=== PATIENT | female | born 1975 | race Caucasian/White ===

== ENCOUNTER 2016-10-24 20:46 | Emergency (ER) | payer OTHER ==
[~2016-10-24 20:46] MED LIST: HCTZ/LISINOPRIL1 TA1 PO; LISINOPRIL2.5 MG PO; MOTRIN800 MG PO; PROZ20 PO; ZOC10 PO
[2016-10-24 23:32] LABS: BASOPHIL % 0.8 % (0-2); PLATELET COUNT 285 x10^3mcL (130-400); RED CELL DISTRIBUTION WIDTH 13.8 % (11.5-14.5)
[2016-10-24 23:36] LABS: CALCIUM 8.9 mg/dL (8.5-10.1); CARBON DIOXIDE 28.9 mmol/L (21-32); CHLORIDE SERUM 101 mmol/L (98-107); CREATININE SERUM 0.8 mg/dL (0.6-1.0); GFR1 > 60 mL/min; GLUCOSE SERUM 98 mg/dL (74-106); POTASSIUM SERUM 3.3 mmol/L (3.5-5.1); SODIUM SERUM 140 mmol/L (136-145)
[2016-10-24 23:38] VITALS: BP 121/80
== END 2016-10-25 00:16 | disposition home or self-care (01) ==
LOC: ED 20:46
PROVIDERS: Emergency Medicine
DX: R07.89 Other chest pain (principal); E87.6 Hypokalemia; I10 Essential (primary) hypertension; J45.909 Unspecified asthma, uncomplicated; F41.9 Anxiety disorder, unspecified
CPT/HCPCS: 36415; Q0092

== ENCOUNTER 2017-06-06 13:18 | Emergency (ER) | payer OTHER ==
[~2017-06-06] VITALS: Ht 154.9 cm; Wt 79.8 kg
[2017-06-06 13:45] VITALS: Ht 154.9 cm; Wt 79.8 kg
[2017-06-06 15:43] LABS: UA SPECIFIC GRAVITY 1.015 (1.005-1.035); microscopic required? YES; urine erythrocyte 2+ (NEGATIVE)
[2017-06-06 15:59] VITALS: BP 138/102
== END 2017-06-06 15:59 | disposition home or self-care (01) ==
LOC: ED 13:18
PROVIDERS: Emergency Medicine
DX: R30.0 Dysuria (principal); M54.5 Low back pain; R10.30 Lower abdominal pain, unspecified; I10 Essential (primary) hypertension; J45.909 Unspecified asthma, uncomplicated

== ENCOUNTER 2017-06-07 08:22 | Emergency (ER) | payer OTHER ==
[~2017-06-07] VITALS: Ht 160 cm; Wt 65.8 kg
[2017-06-07 08:30] VITALS: Ht 160 cm; Wt 65.8 kg
[2017-06-07 09:06] LABS: microscopic required? NO
[2017-06-07 09:20] LABS: BASOPHIL % 0.4 % (0-2); PLATELET COUNT 258 x10^3mcL (130-400); RED CELL DISTRIBUTION WIDTH 14.5 % (11.5-14.5)
[2017-06-07 09:24] LABS: UA SPECIFIC GRAVITY <=1.005 (1.005-1.035); urine erythrocyte NEGATIVE (NEGATIVE)
[2017-06-07 09:28] LABS: CALCIUM 9.4 mg/dL (8.5-10.1); CARBON DIOXIDE 28.7 mmol/L (21-32); CHLORIDE SERUM 100 mmol/L (98-107); CREATININE SERUM 0.7 mg/dL (0.6-1.0); GFR1 > 60 mL/min; GLUCOSE SERUM 109 mg/dL (74-106); POTASSIUM SERUM 3.7 mmol/L (3.5-5.1); SODIUM SERUM 136 mmol/L (136-145)
[2017-06-07 09:32] LABS: ALBUMIN 3.5 g/dL (3.4-5.0); ALKALINE PHOSPHATASE 90 U/L (46-116); ALT/SGPT 48 U/L (14-59); AMYLASE 61 U/L (25-115); AST/SGOT 23 U/L (15-37); BILIRUBIN TOTAL 0.2 mg/dL (0.20-1.00); LIPASE 121 IU/L (73-393); TOTAL PROTEIN, SERUM 7.4 g/dL (6.4-8.2)
[2017-06-07 13:12] VITALS: BP 140/99
== END 2017-06-07 13:12 | disposition home or self-care (01) ==
LOC: ED 08:22
PROVIDERS: Emergency Medicine
DX: M54.9 Dorsalgia, unspecified (principal); N20.0 Calculus of kidney; I10 Essential (primary) hypertension; F41.9 Anxiety disorder, unspecified
CPT/HCPCS: 83880; J1885; J7030

== ENCOUNTER 2017-06-15 05:46 | Emergency (ER) | payer MEDICAID ==
[~2017-06-15] VITALS: Ht 154.9 cm; Wt 66.2 kg
[2017-06-15 05:59] VITALS: BP 144/93; Ht 154.9 cm; Wt 66.2 kg
== END 2017-06-15 08:33 | disposition home or self-care (01) ==
LOC: ED 05:46
DX: R10.12 Left upper quadrant pain (principal); R10.13 Epigastric pain; R11.0 Nausea; J45.909 Unspecified asthma, uncomplicated; I10 Essential (primary) hypertension
CPT/HCPCS: J1885; Q0092

== ENCOUNTER 2017-10-09 09:57 | Emergency (ER) | payer OTHER ==
[~2017-10-09] VITALS: Ht 152.4 cm; Wt 66.7 kg
[2017-10-09 10:01] VITALS: Ht 152.4 cm; Wt 66.7 kg
[2017-10-09 10:42] LABS: BASOPHIL % 0.6 % (0-2); PLATELET COUNT 266 x10^3mcL (130-400); RED CELL DISTRIBUTION WIDTH 13.8 % (11.5-14.5)
[2017-10-09 10:47] LABS: CALCIUM 8.1 mg/dL (8.5-10.1); CARBON DIOXIDE 26.1 mmol/L (21-32); CHLORIDE SERUM 100 mmol/L (98-107); CREATININE SERUM 0.8 mg/dL (0.6-1.0); GFR1 > 60 mL/min; GLUCOSE SERUM 153 mg/dL (74-106); POTASSIUM SERUM 3.8 mmol/L (3.5-5.1); SODIUM SERUM 137 mmol/L (136-145)
[2017-10-09 10:52] LABS: ALBUMIN 3.5 g/dL (3.4-5.0); ALKALINE PHOSPHATASE 88 U/L (46-116); ALT/SGPT 42 U/L (14-59); AMYLASE 72 U/L (25-115); AST/SGOT 25 U/L (15-37); BILIRUBIN TOTAL 0.3 mg/dL (0.20-1.00); LIPASE 117 IU/L (73-393); TOTAL PROTEIN, SERUM 7.3 g/dL (6.4-8.2)
[2017-10-09 12:03] VITALS: BP 125/75
== END 2017-10-09 12:03 | disposition home or self-care (01) ==
LOC: ED 09:57
PROVIDERS: Emergency Medicine
DX: H81.10 Benign paroxysmal vertigo, unspecified ear (principal); R53.1 Weakness; R11.2 Nausea with vomiting, unspecified; J45.909 Unspecified asthma, uncomplicated; I10 Essential (primary) hypertension
CPT/HCPCS: J2550; J8597

== ENCOUNTER 2018-01-18 08:34 | Emergency (ER) | payer OTHER ==
[~2018-01-18] VITALS: Ht 154.9 cm; Wt 66.7 kg
[2018-01-18 09:45] LABS: BASOPHIL % 0.5 % (0-2); PLATELET COUNT 255 x10^3mcL (130-400); RED CELL DISTRIBUTION WIDTH 14.4 % (11.5-14.5)
[2018-01-18 09:54] LABS: CALCIUM 8.1 mg/dL (8.5-10.1); CARBON DIOXIDE 26.4 mmol/L (21-32); CHLORIDE SERUM 107 mmol/L (98-107); CREATININE SERUM 0.8 mg/dL (0.6-1.0); GFR1 > 60 mL/min; GLUCOSE SERUM 109 mg/dL (74-106); POTASSIUM SERUM 4.2 mmol/L (3.5-5.1); SODIUM SERUM 140 mmol/L (136-145)
[2018-01-18 09:58] LABS: ALKALINE PHOSPHATASE 89 U/L (46-116); ALT/SGPT 63 U/L (14-59); AST/SGOT 39 U/L (15-37); BILIRUBIN TOTAL 0.33 mg/dL (0.20-1.00); TOTAL PROTEIN, SERUM 7.3 g/dL (6.4-8.2)
[2018-01-18 10:07] LABS: ALBUMIN 3.3 g/dL (3.4-5.0)
[2018-01-18 10:50] VITALS: BP 107/65
== END 2018-01-18 10:49 | disposition home or self-care (01) ==
LOC: ED 08:34
PROVIDERS: Emergency Medicine
DX: R07.89 Other chest pain (principal); I10 Essential (primary) hypertension; M62.830 Muscle spasm of back; F41.9 Anxiety disorder, unspecified; J45.909 Unspecified asthma, uncomplicated; Z98.890 Other specified postprocedural states
CPT/HCPCS: 36415; J1885; Q0092

== ENCOUNTER 2018-02-05 11:39 | Emergency (ER) | payer OTHER ==
[~2018-02-05] VITALS: Ht 160 cm; Wt 65.3 kg
[2018-02-05 11:41] VITALS: Ht 160 cm; Wt 65.3 kg
[2018-02-05 12:33] LABS: BASOPHIL % 0.7 % (0-2); CALCIUM 8.4 mg/dL (8.5-10.1); CARBON DIOXIDE 29.4 mmol/L (21-32); CHLORIDE SERUM 105 mmol/L (98-107); CREATININE SERUM 0.9 mg/dL (0.6-1.0); GFR1 > 60 mL/min; GLUCOSE SERUM 101 mg/dL (74-106); PLATELET COUNT 277 x10^3mcL (130-400); POTASSIUM SERUM 4.4 mmol/L (3.5-5.1); RED CELL DISTRIBUTION WIDTH 14.1 % (11.5-14.5); SODIUM SERUM 140 mmol/L (136-145)
[2018-02-05 12:37] LABS: ALBUMIN 3.8 g/dL (3.4-5.0); ALKALINE PHOSPHATASE 89 U/L (46-116); ALT/SGPT 71 U/L (14-59); AST/SGOT 47 U/L (15-37); BILIRUBIN TOTAL 0.39 mg/dL (0.20-1.00); TOTAL PROTEIN, SERUM 7.6 g/dL (6.4-8.2)
[2018-02-05 14:06] VITALS: BP 140/89
== END 2018-02-05 14:57 | disposition home or self-care (01) ==
LOC: ED 11:39
PROVIDERS: Emergency Medicine
DX: J40 Bronchitis, not specified as acute or chronic (principal); R09.1 Pleurisy; I10 Essential (primary) hypertension; F41.9 Anxiety disorder, unspecified; Z98.890 Other specified postprocedural states
CPT/HCPCS: 36415; 83880; 85378; J1885; J7512; Q0092

== ENCOUNTER 2018-03-19 17:41 | Emergency (ER) | payer OTHER ==
[~2018-03-19] VITALS: Ht 152.4 cm; Wt 67.1 kg
[2018-03-19 18:08] VITALS: Ht 152.4 cm; Wt 67.1 kg
[2018-03-19 19:13] LABS: CALCIUM 8.4 mg/dL (8.5-10.1); CARBON DIOXIDE 26.4 mmol/L (21-32); CHLORIDE SERUM 103 mmol/L (98-107); CREATININE SERUM 0.9 mg/dL (0.6-1.0); GFR1 > 60 mL/min; GLUCOSE SERUM 112 mg/dL (74-106); POTASSIUM SERUM 3.7 mmol/L (3.5-5.1); SODIUM SERUM 138 mmol/L (136-145)
[2018-03-19 19:17] LABS: ALKALINE PHOSPHATASE 76 U/L (46-116); ALT/SGPT 54 U/L (14-59); AMYLASE 75 U/L (25-115); AST/SGOT 30 U/L (15-37); BILIRUBIN TOTAL 0.1 mg/dL (0.20-1.00); CHOLESTEROL 180 mg/dL (<200); HDL CHOLESTEROL 35 mg/dL (40-60); LIPASE 159 IU/L (73-393); TOTAL PROTEIN, SERUM 7.4 g/dL (6.4-8.2)
[2018-03-19 19:18] LABS: BASOPHIL % 0.5 % (0-2); PLATELET COUNT 248 x10^3mcL (130-400); RED CELL DISTRIBUTION WIDTH 13.6 % (11.5-14.5)
[2018-03-19 19:19] LABS: ALBUMIN 3.3 g/dL (3.4-5.0)
[2018-03-19 20:01] LABS: microscopic required? NO
[2018-03-19 20:21] LABS: UA SPECIFIC GRAVITY 1.015 (1.005-1.035); urine erythrocyte NEGATIVE (NEGATIVE)
[2018-03-19 23:17] VITALS: BP 134/89
== END 2018-03-19 23:23 | disposition home or self-care (01) ==
LOC: ED 17:41
PROVIDERS: Emergency Medicine
DX: R10.13 Epigastric pain (principal); I10 Essential (primary) hypertension; E66.9 Obesity, unspecified; J45.909 Unspecified asthma, uncomplicated; F41.9 Anxiety disorder, unspecified; Z68.28 Body mass index [BMI] 28.0-28.9, adult; Z98.51 Tubal ligation status
CPT/HCPCS: J0500; Q0092; Q0162

== ENCOUNTER 2018-04-27 21:50 | Emergency (ER) | payer OTHER ==
[2018-04-27 22:34] VITALS: Ht 152.4 cm
[2018-04-28 00:35] VITALS: BP 125/60
== END 2018-04-28 00:35 | disposition home or self-care (01) ==
LOC: ED 21:50
DX: N39.0 Urinary tract infection, site not specified (principal); I10 Essential (primary) hypertension; J45.909 Unspecified asthma, uncomplicated; F41.9 Anxiety disorder, unspecified; Z98.51 Tubal ligation status; Z98.890 Other specified postprocedural states
CPT/HCPCS: J0696

== ENCOUNTER 2018-07-23 09:24 | Emergency (ER) | payer OTHER ==
[~2018-07-23] VITALS: Ht 152.4 cm; Wt 67.1 kg
[2018-07-23 09:37] VITALS: Ht 152.4 cm; Wt 67.1 kg
[2018-07-23 11:16] VITALS: BP 138/86
== END 2018-07-23 11:16 | disposition home or self-care (01) ==
LOC: ED 09:24
DX: R05 Cough (principal); M54.6 Pain in thoracic spine; J45.909 Unspecified asthma, uncomplicated; I10 Essential (primary) hypertension; F41.9 Anxiety disorder, unspecified; Z98.890 Other specified postprocedural states; R09.89 Other specified symptoms and signs involving the circulatory and respiratory systems

== ENCOUNTER 2018-09-02 16:20 | Emergency (ER) | payer OTHER ==
[~2018-09-02] VITALS: Ht 152.4 cm; Wt 64.9 kg
[2018-09-02 16:25] VITALS: Ht 152.4 cm; Wt 64.9 kg
[2018-09-02 18:26] VITALS: BP 128/83
== END 2018-09-02 18:27 | disposition home or self-care (01) ==
LOC: ED 16:20
DX: H81.10 Benign paroxysmal vertigo, unspecified ear (principal); I10 Essential (primary) hypertension; J45.909 Unspecified asthma, uncomplicated; F41.9 Anxiety disorder, unspecified; Z98.51 Tubal ligation status
CPT/HCPCS: J8597; Q0162

== ENCOUNTER 2018-10-27 20:30 | Emergency (ER) | payer OTHER ==
[~2018-10-27] VITALS: Ht 152.4 cm; Wt 68.0 kg
[2018-10-27 20:44] VITALS: Ht 152.4 cm; Wt 68.0 kg
[2018-10-28 00:05] VITALS: BP 117/76
== END 2018-10-28 00:05 | disposition home or self-care (01) ==
LOC: ED 20:30
DX: R51 Headache (principal); H92.03 Otalgia, bilateral; R09.81 Nasal congestion; J45.909 Unspecified asthma, uncomplicated; I10 Essential (primary) hypertension; F41.9 Anxiety disorder, unspecified; Z98.890 Other specified postprocedural states; Z98.51 Tubal ligation status
CPT/HCPCS: J1885; J8597; Q0163

== ENCOUNTER 2018-11-01 11:07 | Emergency (ER) | payer OTHER ==
[~2018-11-01] VITALS: Ht 157.5 cm; Wt 650.0 kg
[2018-11-01 11:23] VITALS: Ht 157.5 cm; Wt 650.0 kg
[2018-11-01 14:16] VITALS: BP 148/96
== END 2018-11-01 14:16 | disposition home or self-care (01) ==
LOC: ED 11:07
DX: G44.209 Tension-type headache, unspecified, not intractable (principal); F41.9 Anxiety disorder, unspecified; H93.92 Unspecified disorder of left ear; J45.909 Unspecified asthma, uncomplicated; I10 Essential (primary) hypertension; Z98.890 Other specified postprocedural states; Z98.51 Tubal ligation status

== ENCOUNTER 2018-11-13 09:14 | Emergency (ER) | payer OTHER ==
[~2018-11-13] VITALS: Ht 152.4 cm; Wt 66.3 kg
[2018-11-13 09:23] VITALS: Ht 152.4 cm; Wt 66.3 kg
[2018-11-13 11:54] VITALS: BP 140/100
== END 2018-11-13 11:54 | disposition home or self-care (01) ==
LOC: ED 09:14
DX: M54.81 Occipital neuralgia (principal); R51 Headache; J45.909 Unspecified asthma, uncomplicated; I10 Essential (primary) hypertension; F41.9 Anxiety disorder, unspecified; Z98.51 Tubal ligation status
CPT/HCPCS: J2001; J3490

== ENCOUNTER 2018-11-15 16:05 | Emergency (ER) | payer OTHER ==
[~2018-11-15] VITALS: Ht 152.4 cm; Wt 66.2 kg
[2018-11-15 16:11] VITALS: Ht 152.4 cm; Wt 66.2 kg
[2018-11-15 16:44] LABS: BASOPHIL % 0.5 % (0-2); PLATELET COUNT 262 x10^3mcL (130-400); RED CELL DISTRIBUTION WIDTH 13.6 % (11.5-14.5)
[2018-11-15 16:55] LABS: CALCIUM 8.6 mg/dL (8.5-10.1); CARBON DIOXIDE 24.3 mmol/L (21-32); CHLORIDE SERUM 99 mmol/L (98-107); CREATININE SERUM 0.8 mg/dL (0.6-1.0); GFR1 > 60 mL/min; GLUCOSE SERUM 142 mg/dL (74-106); POTASSIUM SERUM 3.5 mmol/L (3.5-5.1); SODIUM SERUM 136 mmol/L (136-145)
[2018-11-15 18:45] VITALS: BP 120/80
== END 2018-11-15 18:46 | disposition home or self-care (01) ==
LOC: ED 16:05
PROVIDERS: Emergency Medicine
DX: F41.9 Anxiety disorder, unspecified (principal)
CPT/HCPCS: 36415

== ENCOUNTER 2019-04-17 17:25 | Emergency (ER) | payer OTHER ==
[~2019-04-17] VITALS: Ht 152.4 cm; Wt 66.7 kg
[2019-04-17 17:48] VITALS: Ht 152.4 cm; Wt 66.7 kg
[2019-04-17 21:00] LABS: BASOPHIL % 0.8 % (0-2); PLATELET COUNT 288 x10^3mcL (130-400); RED CELL DISTRIBUTION WIDTH 14.1 % (11.5-14.5)
[2019-04-17 21:19] LABS: CARBON DIOXIDE 23.6 mmol/L (21-32); CHLORIDE SERUM 100 mmol/L (98-107); CREATININE SERUM 0.7 mg/dL (0.6-1.0); GFR1 > 60 mL/min; GLUCOSE SERUM 147 mg/dL (74-106); POTASSIUM SERUM 3.5 mmol/L (3.5-5.1); SODIUM SERUM 135 mmol/L (136-145)
[2019-04-17 21:24] LABS: ALBUMIN 3.7 g/dL (3.4-5.0); ALKALINE PHOSPHATASE 92 U/L (46-116); ALT/SGPT 62 U/L (14-59); AST/SGOT 34 U/L (15-37); BILIRUBIN TOTAL 0.2 mg/dL (0.20-1.00); TOTAL PROTEIN, SERUM 8.1 g/dL (6.4-8.2)
[2019-04-18 01:47] VITALS: BP 119/67
== END 2019-04-18 01:47 | disposition home or self-care (01) ==
LOC: ED 17:25
PROVIDERS: Emergency Medicine
DX: S20.02XA Contusion of left breast, initial encounter (principal); J45.909 Unspecified asthma, uncomplicated; X58.XXXA Exposure to other specified factors, initial encounter; Y93.89 Activity, other specified; Y92.89 Other specified places as the place of occurrence of the external cause; Y99.8 Other external cause status
CPT/HCPCS: 36415; 85378; J7030

== ENCOUNTER 2019-04-27 03:47 | Emergency (ER) | payer OTHER ==
[~2019-04-27] VITALS: Ht 152.4 cm; Wt 69.2 kg
[2019-04-27 03:52] VITALS: Ht 152.4 cm; Wt 69.2 kg
[2019-04-27 05:03] VITALS: BP 129/78
== END 2019-04-27 04:49 | disposition home or self-care (01) ==
LOC: ED 03:47
DX: H66.92 Otitis media, unspecified, left ear (principal); J02.9 Acute pharyngitis, unspecified; J45.909 Unspecified asthma, uncomplicated

== ENCOUNTER 2019-09-15 19:46 | Emergency (ER) | payer OTHER ==
[~2019-09-15] VITALS: Ht 162.6 cm; Wt 63.5 kg
[2019-09-15 19:50] VITALS: Ht 162.6 cm; Wt 63.5 kg
[2019-09-15 20:45] LABS: BASOPHIL % 0.2 % (0-2); PLATELET COUNT 311 x10^3mcL (130-400); RED CELL DISTRIBUTION WIDTH 13.9 % (11.5-14.5)
[2019-09-15 20:59] LABS: ALBUMIN 3.7 g/dL (3.4-5.0); BILIRUBIN TOTAL 0.4 mg/dL (0.20-1.00); CREATININE SERUM 1.3 mg/dL (0.6-1.0); TOTAL PROTEIN, SERUM 7.7 g/dL (6.4-8.2)
[2019-09-15 21:12] LABS: POTASSIUM SERUM 2.9 mmol/L (3.5-5.1)
[2019-09-15 21:17] LABS: CALCIUM 9.1 mg/dL (8.5-10.1)
[2019-09-15 23:24] VITALS: BP 97/59
== END 2019-09-15 23:24 | disposition home or self-care (01) ==
LOC: ED 19:46
PROVIDERS: Emergency Medicine
DX: I10 Essential (primary) hypertension (principal); G44.209 Tension-type headache, unspecified, not intractable; E87.6 Hypokalemia; Z98.890 Other specified postprocedural states; Z98.51 Tubal ligation status
CPT/HCPCS: J1885

== ENCOUNTER 2020-03-16 10:14 | Emergency (ER) | payer OTHER ==
[~2020-03-16] VITALS: Ht 152.4 cm; Wt 63.0 kg
[2020-03-16 10:37] VITALS: BP 166/99; Ht 152.4 cm; Wt 63.0 kg
[2020-03-16 11:26] LABS: UA SPECIFIC GRAVITY 1.025 (1.005-1.035); microscopic required? YES; urine erythrocyte 2+ (NEGATIVE)
== END 2020-03-16 15:00 | disposition home or self-care (01) ==
LOC: ED 10:14
DX: N20.0 Calculus of kidney (principal); J45.909 Unspecified asthma, uncomplicated; I10 Essential (primary) hypertension; Z98.51 Tubal ligation status; Z98.890 Other specified postprocedural states
CPT/HCPCS: J1885